=== PATIENT | male | born 1970 | race Hispanic/Latino ===

== ENCOUNTER 2017-10-20 14:03 | Outpatient (CLI) | payer OTHER ==
[~2017-10-20 14:03] MED LIST: ISOVUE-370 76%-LOCM 1 ML ONE
== END 2017-10-20 14:04 | disposition home or self-care (01) ==
LOC: BICCT 14:03
PROVIDERS: ATTEND Family Medicine
DX: R10.9 Unspecified abdominal pain (principal); K57.30 Diverticulosis of large intestine without perforation or abscess without bleeding
CPT/HCPCS: 74177

== ENCOUNTER 2017-11-04 12:56 | Outpatient (CLI) | payer OTHER | END 2017-11-04 12:57 | disposition home or self-care (01) | LOC: DTY/OP 12:56 | PROVIDERS: ATTEND Family Medicine | DX: E11.9 Type 2 diabetes mellitus without complications (principal) | CPT/HCPCS: 97802 ==

== ENCOUNTER 2022-12-17 10:39 | Outpatient (CLI) | payer BC | END 2022-12-17 10:40 | disposition home or self-care (01) | LOC: SCSRAD 10:39 | PROVIDERS: ATTEND Physician Assistant Medical | DX: M25.562 Pain in left knee (principal); M25.462 Effusion, left knee; M25.762 Osteophyte, left knee ==